=== PATIENT | female | born 2000 | race Caucasian/White ===

== ENCOUNTER 2019-05-26 12:49 | Emergency (ER) | payer BC ==
--- NOTE | 2019-05-26 13:10 | UC ---
Respiratory Complaint HPI - HPI Summary HPI Summary: 19 yo female presents with cough. She tells me that she has a history of asthma and gets a URI/asthma exacerbation often in the colder months. Over the last 2- 3 days has been having a non-productive cough with increased wheezing. She has albuterol inhaler at home which is helping. Yesterday she developed a sore throat. She does not smoke. Has felt feverish, but has not taken her temperature. Denies sinus symptoms, SOB, chest pain, abdominal pain, n/v. - History of Current Complaint Stated Complaint: ST,WHEEZING Time Seen by Provider: 05/26/19 13:10 Hx Obtained From: Patient Hx Last Menstrual Period: on BCP no menses Onset/Duration: Gradual Onset Severity Initially: Mild Severity Currently: Mild Character: Cough: Nonproductive - Allergies/Home Medications Allergies/Adverse Reactions: Allergies Allergy/AdvReac Type Severity Reaction Status Date / Time No Known Allergies Allergy Verified 06/04/18 14:42 PMH/Surg Hx/FS Hx/Imm Hx Respiratory History: Asthma - Surgical History Surgical History: None - Family History Known Family History: Positive: Non-Contributory Negative: Diabetes - Social History Occupation: Student Lives: Dormitory/Roommates Alcohol Use: None Substance Use Type: None Smoking Status (MU): Never Smoked Tobacco Review of Systems All Other Systems Reviewed And Are Negative: No Constitutional: Positive: Negative Skin: Positive: Negative Eyes: Positive: Negative ENT: Positive: Sore Throat Respiratory: Positive: Cough Cardiovascular: Positive: Negative Gastrointestinal: Positive: Negative Neurological: Positive: Negative Psychological: Positive: Negative Physical Exam - Summary Physical Exam Summary: GENERAL: NAD. WDWN. No pain distress. SKIN: No rashes, sores, lesions, or open wounds. HEENT: Head: AT/NC Eyes: Conjunctiva clear without inflammation or discharge. Ears: Hearing grossly normal. TMs intact, no bulging, erythema, or edema. Nose: Nasal mucosa pink and moist. NTTP maxillary and frontal sinus. Throat: Posterior oropharynx without exudates, erythema, or tonsillar enlargement. Uvula midline. NECK: Supple. Nontender. No lymphadenopathy. CHEST: Mild wheezing throughout. No r/r. No accessory muscle use. Breathing comfortably and in no distress. CV: RRR. Pulses intact. Cap refill <2seconds NEURO: Alert. PSYCH: Age appropriate behavior. Triage Information Reviewed: Yes Vital Signs: Vital Signs: Temp Pulse Resp BP Pulse Ox 98.8 F 103 16 121/64 99 05/26/19 13:14 05/26/19 13:14 05/26/19 13:14 05/26/19 13:14 05/26/19 13:14 Vital Signs Reviewed: Yes Respiratory Course/Dx - Course Course Of Treatment: Suspect asthma exacerbation/bronchitis. Discussed viral vs bacterial causes with the pt and she prefers to be on anbx at this time. Will also place her on prednisone and have her continue her inhalers at home. - Differential Dx/Diagnosis Provider Diagnosis: Asthma exacerbation Discharge ED - Sign-Out/Discharge Documenting (check all that apply): Patient Departure All imaging exams completed and their final reports reviewed: No Studies - Discharge Plan Condition: Stable Disposition: HOME Prescriptions: Azithromycin TAB* [Zithromax TAB (Z-CHEN) 250 mg #6 tabs] 2 tab PO .TODAY, THEN 1 DAILY #1 chen predniSONE TAB* [Deltasone 20 MG TAB*] 40 mg PO DAILY #10 tab Patient Education Materials: Asthma (ED) Referrals: No Primary Care Phys,NOPCP [Primary Care Provider] - Additional Instructions: If you develop a fever, shortness of breath, chest pain, new or worsening symptoms - please call your PCP or go to the ED immediately. Continue using your inhalers as directed - Billing Disposition and Condition Condition: STABLE Disposition: Home
[2019-05-26 13:18] VITALS: BP 121/64
== END 2019-05-26 13:21 | disposition home or self-care (01) ==
LOC: UCCORT 12:49
DX: J45.901 Unspecified asthma with (acute) exacerbation (principal)
CPT/HCPCS: 99212; G0463